=== PATIENT | female | born 1960 | race Caucasian/White ===

== ENCOUNTER → 2016-08-03 | Day surgery (SDC) | payer BC ==
[2016-07-31 10:41] VITALS: BMI 28.0
[~2016-08-03] VITALS: Ht 170.2 cm; Wt 81.8 kg
[~2016-08-03] MED LIST: ASCO10003 PO; CALC500C70 PO; IRON PO; LIDOCAINE HCL 2% 2 ML VIAL (20MG/ML) ONE; MIDAZOLAM HCL 1 MG/ML 2ML VIAL ONE; OMEG10007 PO; PANT40TA PO; PROPOFOL IV EMULSION 10 MG/ML 20 ML VIAL IV ONE; SODIUM CHLORIDE 0.9% 500ML 500 ML IV ONE; TAMO20TA9 PO; VITAMIN B12 PO
[2016-08-03 09:30] VITALS: Ht 170.2 cm; Wt 81.8 kg
--- NOTE | 2016-08-03 10:03 | Endo History and Physical ---
History & Physical Date of Service: Aug 03, 2016. Chief Complaint: DYSPHAGIA ABNORMAL BARIUM SWALLOW Referring Physician: DR PREEZ History of Present Illness 56 yo CF who presents for EGD secondary to dysphagia. Past Medical History Cancer Past Surgical History Hx Cardiac Surgery: No Hx Internal Defibrillator: No Hx Pacemaker: No Hx Abdominal Surgery: Yes (, DESMOID TUMOR REMOVAL FROM ABDOMINAL WALL ) Hx of Implantable Prosthesis: No Hx Post-Op Nausea and Vomiting: No Hx Cancer Surgery: Yes (LEFT BREAST LUMPECTOMY (2 PROCEDURES)) Hx Thoracic Surgery: No Hx Orthopedic: No Hx Urinary Tract Surgery: No Family History None Social History Smoking Status: Never Smoker Hx Substance Use: No Hx Alcohol Use: Yes (OCCASSIONALLY) Allergies Coded Allergies: Nickel (Unverified Allergy, Intermediate, RASH, 08/03/16) SKIN IRRATATION AND BLEEDING WITH MAGALI NO KNOWN DRUG ALLERGIES (Verified Allergy, Unknown, ., 08/03/16) Cyclamate (Unverified Adverse Reaction, Unknown, STOMACH ACHES, 08/03/16) 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 Current Medications Reported Home Medications Medications Dose Route/Sig Max Daily Dose Days Date Category Os-Wilber 500 Plus D (Calcium/Vitamin D) Tab 1 Tab PO DAILY 08/03/16 Reported [place]-3 (Fish Oil) 1 Ea Cap 1 Cap PO 08/03/16 Reported [Vitamin B12] 1 Tab PO HS 07/31/16 Reported [Iron] 1 Tab PO HS 07/31/16 Reported Vitamin C (Ascorbic Acid) 1,000 Mg Tab 1 Tab PO HS 07/31/16 Reported Vital Signs Weight (Kilograms): 81.82 Height (Feet): 5 Height (Inches): 7 Date Time Temp Pulse Resp B/P Pulse Ox O2 Delivery O2 Flow Rate FiO2 08/03/16 09:35 36.5 81 18 154/74 98 Room Air Physical Exam General Appearance: WD/WN, no apparent distress Respiratory/Chest: Auscultation: breath sounds normal Cardiovascular: Heart Auscultation: RRR Abdomen: Bowel Sounds: normal Inspection & Palpation: soft, non-distended, no tenderness, guarding & rebound Assessment and Plan Assessment: 56 yo CF who presents for EGD secondary to dysphagia. Plan: Proceed with EGD.
--- NOTE | 2016-08-03 10:17 | Discharge Instructions ---
Endoscopy Patient Instructions Date / Procedure(s) Performed Aug 03, 2016. 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 Esophageal stricture s/p dilation and mid-esophageal biopsies Medication Instructions Reported Home Medications Medications Dose Route/Sig Max Daily Dose Days Date Category Os-Wilber 500 Plus D (Calcium/Vitamin D) Tab 1 Tab PO DAILY 08/03/16 Reported [place]-3 (Fish Oil) 1 Ea Cap 1 Cap PO 08/03/16 Reported [Vitamin B12] 1 Tab PO HS 07/31/16 Reported [Iron] 1 Tab PO HS 07/31/16 Reported Vitamin C (Ascorbic Acid) 1,000 Mg Tab 1 Tab PO HS 07/31/16 Reported Provider Instructions Activity Restrictions - No exercising or heavy lifting for 24 hours. - Do not drink alcohol the day of the procedure. - Do not drive a car or operate machinery until the day after the procedure. - Do not make any important decisions or sign important papers in 24 hours after the procedure. Following Day: - Return to full activity which may include returning to work/school. Diet Start your diet with liquids and light foods (jello, soup, juice, toast). Then eat your usual diet if not nauseated. Treatment For Common After Affects For mild abdominal pain, bloating, or excessive gas: - Rest - Eat lightly - Lie on right side Follow-Up Information Follow-up with DR PEREZ as scheduled Anesthesia Information What You Should Know You have had a procedure that required some medicine to reduce anxiety and discomfort. This treatment is called moderate sedation. After receiving the treatment, you may be sleepy, but you will be able to breathe on your own. The effects of the treatment may last for several hours. Follow these instructions along with Activity/Diet recommendations noted above: * Do NOT do anything where dizziness or clumsiness would be dangerous. * Rest quietly at home today, then you can be up and about tomorrow. * Have a responsible person stay with you the rest of today. * You may have had an I.V. today. If so, you may take the dressing off later today. Recommendations Call your doctor if: * Trouble breathing * Continuous vomiting for more than 24 hours * Temperature above 101 degrees * Severe abdominal pain or bloating * Pain not relieved by pain medicine ordered * There is increased drainage or redness from any incision * A large amount of rectal bleeding greater than 2-3 tablespoons. (If you had a polyp/s removed or have hemorrhoids, a small amount of blood - from the rectum is to be expected.) * You have any unanswered questions or concerns. IN THE EVENT OF A SERIOUS EMERGENCY, GO TO THE NEAREST EMERGENCY ROOM Your discharge instructions were prepared by provider Shun Ozuna. Patient Instructions Signature Page Kadi Lehman Patient (or Guardian) Signature/Date: I have read and understand the instructions given to me by my caregivers. Caregiver/RN/Doctor Signature/Date: The above-named patient and/or guardian has received patient instructions on this date. + Original Patient Signature Page (only) stays with chart. Please make copy for patient.
--- NOTE | 2016-08-03 10:34 | GI REPORT ---
Procedure Date: 08/03/2016 9:59 AM Procedure: Upper GI endoscopy Indications: Dysphagia Medicines: Monitored Anesthesia Care Complications: No immediate complications. Estimated Blood Loss: Estimated blood loss: none. Procedure: Pre-Anesthesia Assessment: - Prior to the procedure, a History and Physical was performed, and patient medications and allergies were reviewed. The patient's tolerance of previous anesthesia was also reviewed. The risks and benefits of the procedure and the sedation options and risks were discussed with the patient. All questions were answered, and informed consent was obtained. Prior Anticoagulants: The patient has taken no previous anticoagulant or antiplatelet agents. ASA Grade Assessment: I - A normal, healthy patient. After reviewing the risks and benefits, the patient was deemed in satisfactory condition to undergo the procedure. After obtaining informed consent, the endoscope was passed under direct vision. Throughout the procedure, the patient's blood pressure, pulse, and oxygen saturations were monitored continuously. The Scope was introduced through the mouth, and advanced to the second part of duodenum. The upper GI endoscopy was accomplished without difficulty. The patient tolerated the procedure well. Findings: One moderate benign-appearing, intrinsic stenosis was found. This measured 1.1 cm (inner diameter) x less than one cm (in length) and was traversed. A TTS dilator was passed through the scope. Dilation with a 12-13.5-15 mm balloon (to a maximum balloon size of 15 mm) dilator was performed. The dilation site was examined and showed moderate improvement in luminal narrowing. Four biopsies were obtained with cold forceps for histology in a targeted manner in the middle third of the esophagus. The stomach was normal. The examined duodenum was normal. Impression: - Benign-appearing esophageal stenosis. Dilated. - Normal stomach. - Normal examined duodenum. - Four biopsies were obtained in the middle third of the esophagus. Recommendation: - Resume previous diet. - Use Protonix (pantoprazole) 40 mg PO daily indefinitely. - Await pathology results. - Return to GI office at appointment to be scheduled. Shun Ozuna DO 08/03/2016 10:23:38 AM This report has been signed electronically. Note Initiated On: 08/03/2016 9:59 AM
[2016-08-03 10:52] VITALS: BP 119/82; PULSE 60; O2SAT 100
--- NOTE | 2016-08-03 11:29 | Anesthesiology Progress Note ---
Anesthesia Post Op Note Date & Time Aug 03, 2016 at 11:28 Vital Signs Pain Intensity: 0 Vital Signs Past 12 Hours Date Time Temp Pulse Resp B/P Pulse Ox O2 Delivery O2 Flow Rate FiO2 08/03/16 10:52 60 20 119/82 100 Room Air 08/03/16 10:37 74 20 114/72 96 Room Air 08/03/16 10:22 71 20 112/65 95 Room Air 08/03/16 09:35 36.5 81 18 154/74 98 Room Air Notes Mental Status: alert / awake / arousable Nausea / Vomiting: adequately controlled Pain: adequately controlled Airway Patency, RR, SpO2: stable & adequate BP & HR: stable & adequate Hydration State: stable & adequate Anesthetic Complications: no major complications apparent
== END | disposition home or self-care (01) ==
LOC: C.GI 09:16
PROVIDERS: ATTEND Internal Medicine
DX: R13.10 Dysphagia, unspecified (principal); K20.9 Esophagitis, unspecified; K22.2 Esophageal obstruction; Z85.9 Personal history of malignant neoplasm, unspecified; Z98.890 Other specified postprocedural states

== ENCOUNTER → 2016-08-26 | Outpatient (CLI) | payer BC ==
[~2016-08-26] MED LIST changes: -LIDOCAINE HCL 2% 2 ML VIAL (20MG/ML) ONE; -MIDAZOLAM HCL 1 MG/ML 2ML VIAL ONE; -PROPOFOL IV EMULSION 10 MG/ML 20 ML VIAL IV ONE; -SODIUM CHLORIDE 0.9% 500ML 500 ML IV ONE; +TAMO20TA47 PO; -TAMO20TA9 PO
[2016-08-26 14:49] VITALS: BP 130/75; PULSE 76; TEMP 36.6; O2SAT 99
--- NOTE | 2016-08-26 16:56 | Radiation Oncology Follow-Up ---
Radiation Oncology Follow-Up Date of Visit Aug 26, 2016. (Judith Hamlin PA-C) Reason For Visit One-month follow-up and cancer survivorship care plan (Judith Hamlin PA-C) Radiation Completion Date Hypofractionation 07/24/16 (Judith Hamlin PA-C) Diagnosis (1) Breast cancer Onset Date: 03/17/2016 Histology Subtype: lobular Stage: l (A) Permanent Comment: STAGING: Left breast, cancer, invasive lobular carcinoma, grade 1, ER/DE positive, Her2 negative, [id number], stage IA -Oncotype DX Score 10 -BRCA 1/2 mutation negative TREATMENT: 1. Lumpectomy/SLN - 04/08/2016 (Dr. Kaba) 2. Re-excision for negative margins - 05/06/2016 (Dr. Kaba) 3. Wound healing issues requiring a wound vac 4. Status post completion of radiation therapy 07/24/2016 received 5130 cGy utilizing hypo-fractionation. Last Edited By: Judith Hamlin on Aug 04, 2016 15:09 (Judith Hamlin PA-C) History of Present Illness Ms. Lehman is a 56-year-old female with a family history of breast cancer who' s been followed with alternating MRI and mammogram/ultrasound imaging for her breast cancer screening. In August 2015, she did have bilateral ultrasounds which did reveal a 4 mm enhancing focus in the left breast at the 11 o'clock position. Additionally, there was a benign finding in the right breast that was also being followed. She did have a bilateral MRI of the breast on 2015 which revealed a 4 mm focus of enhancement in the left breast in the 11 o' clock position which has changed in kinetics making it more concerning for malignancy. Recommendation was for a diagnostic bilateral mammogram with targeted ultrasound which was completed on 03/05/2016 which showed no evidence of malignancy in either breast. Subsequently, she underwent an MRI guided biopsy on 03/17/2016 of the left breast mass in the biopsy confirmed invasive lobular carcinoma that was grade 1, estrogen receptor positive, progesterone receptor positive and HER-2 negative. There is no perineural invasion or evidence of ductal carcinoma in situ. The patient subsequently saw Dr. Darryl Kaba from surgery to discuss treatment options. The patient ultimately decided for breast conserving therapy which include a lumpectomy and sentinel lymph node biopsy. She subsequently underwent lumpectomy and sentinel lymph node biopsy on 04/08/2016 which revealed invasive lobular carcinoma that was grade 1. There was a residual amount of tumor that measured 1 mm, but the biopsy measured 10 mm so the pathologist staged the patient as pT1c. There is no evidence of ductal carcinoma in situ, lymphovascular space invasion as well. The margin was positive at the lateral edge of the resection for invasive lobular carcinoma. The sentinel lymph node was negative for metastatic carcinoma. The patient subsequently underwent re-resection on 05/06/2016 and was able to obtain negative margins. At the time of the surgery, the patient was already having an enlarged seroma and there was concern for potential wound healing issues so the patient did have a wound VAC placed in the operating room. Since then, she is been followed by the wound clinic and currently has the wound VAC in place. She did have a Oncotype DX study completed on her pathologic specimen which revealed a score of 10. The patient was seen in consultation by Dr. Sergio Reese for medical oncology who discussed systemic therapy. He advised against chemotherapy based on her Oncotype DX study but recommended anti- hormonal therapy based on her estrogen receptor positive status. The patient agreed with this treatment course. We are now seeing the patient in consultation discussed role of adjuvant radiation therapy. Overall, the patient is doing relatively well. She does continue to have a wound VAC in place and she is tolerating it well. She will be seeing the wound clinic next week for potential removal of the wound VAC. Otherwise she has no other complaints. After clearance from the wound clinic she return to our office and underwent radiation therapy. Radiation was completed 07/24/2016 she received 5130 cGy utilizing hypo-fractionation. (Judith Hamlin PA-C) Interim History She's been doing well over the past month. The irritation of the skin has steadily improved. She does continue to have tanning. There is continued to be some mild peeling. The area under the arm had previously been very tender. This is steadily improved. She has noted no masses or tenderness and no change of the axilla she's had no swelling of her arm. She is currently not scheduled for mammography. She saw Dr. Reese and she is now on tamoxifen. She denies side effects. 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 in areas; Breast: Right Upper Arm Measurement: 29.5 Right Mid Arm Measurement: 25.5 Right Wrist Measurement: 16.0 Left Upper Arm Measurement: 29.0 Left Mid Arm Measurement: 24.8 Left Wrist Measurement: 16.0 Arm Dominence: Right Additional Notes: She completed a distress management report and answered "no" to all questions. (Judith Hamlin PA-C) Physical Exam Vital Signs Date Time Temp Pulse Resp B/P Pulse Ox O2 Delivery O2 Flow Rate FiO2 08/26/16 14:49 36.6 76 12 130/75 99 Fatigue: None General Appearance: no apparent distress Eyes: normal inspection, EOMI ENT: normal ENT inspection, hearing grossly normal Respiratory/Chest: lungs clear, no respiratory distress, no accessory muscle use Breast: Breast examination reveals hyperpigmentation of the left breast. There is mild dryness of the skin with peeling. There is hypopigmentation of the nipple with mild swelling. There is mild edema in the lower quadrants. There are no masses or tenderness. She has no skin retractions. Using the [place] score cosmesis she currently has a poor outcome due to the skin changes. This is steadily improve over time. The right breast showed no masses or tenderness and no axillary adenopathy. Cardiovascular: regular rate, rhythm, no gallop, no murmur Abdomen: non tender, soft Extremities: no pedal edema Neurologic/Psychiatric: no motor/sensory deficits, alert, normal mood/affect Skin: warm/dry Lymphatic: no adenopathy (Judith Hamlin PA-C) Laboratory Studies Test 07/20/16 09:07 07/28/16 15:21 08/06/16 12:39 Triglycerides Level 61 mg/dl (0-150) Cholesterol Level 149 mg/dl (0-200) HDL Cholesterol 63 mg/dl LDL Cholesterol, Calculated 74 mg/dl VLDL Cholesterol, Calculated 12 mg/dl Cholesterol/HDL Ratio 2.4 Thyroid Stimulating Hormone (TSH) 2.930 uIu/ml (0.300-4.500) Hepatitis C Antibody NEG (NEG) Sodium Level 141 mmol/L (136-145) 141 mmol/L (136-145) Potassium Level 3.9 mmol/L (3.5-5.1) 3.7 mmol/L (3.5-5.1) Chloride Level 106 mmol/L (98-107) 105 mmol/L (98-107) Carbon Dioxide Level 29 mmol/L (21-32) 28 mmol/L (21-32) Anion Gap 6.0 mmol/L (3-11) 8.0 mmol/L (3-11) Blood Urea Nitrogen 15 mg/dl (7-18) 8 mg/dl (7-18) Creatinine 0.69 mg/dl (0.60-1.20) 0.73 mg/dl (0.60-1.20) Estimated GFR () 114.4 108.2 Estimated GFR (Non- 98.7 93.4 BUN/Creatinine Ratio 21.4 (10-20) 11.0 (10-20) Random Glucose 92 mg/dl (70-99) 85 mg/dl (70-99) Calcium Level 8.5 mg/dl (8.5-10.1) 8.8 mg/dl (8.5-10.1) Magnesium Level 2.4 mg/dl (1.8-2.4) White Blood Count 5.60 K/uL (4.8-10.8) Red Blood Count 4.32 M/uL (4.2-5.4) Hemoglobin 12.6 g/dL (12.0-16.0) Hematocrit 37.4 % (37-47) Mean Corpuscular Volume 86.6 fL (80-100) Mean Corpuscular Hemoglobin 29.2 pg (25-34) Mean Corpuscular Hemoglobin Concent 33.7 g/dl (32-36) Platelet Count 221 K/uL (130-400) Mean Platelet Volume 11.2 fL (7.4-10.4) Neutrophils (%) (Auto) 71.2 % Lymphocytes (%) (Auto) 17.9 % Monocytes (%) (Auto) 6.1 % Eosinophils (%) (Auto) 3.9 % Basophils (%) (Auto) 0.5 % Neutrophils # (Auto) 3.99 K/uL (1.4-6.5) Lymphocytes # (Auto) 1.00 K/uL (1.2-3.4) Monocytes # (Auto) 0.34 K/uL (0.11-0.59) Eosinophils # (Auto) 0.22 K/uL (0-0.5) Basophils # (Auto) 0.03 K/uL (0-0.2) RDW Standard Deviation 41.7 fL (36.4-46.3) RDW Coefficient of Variation 13.0 % (11.5-14.5) Immature Granulocyte % (Auto) 0.4 % Immature Granulocyte # (Auto) 0.02 K/uL (0.00-0.02) Total Bilirubin 0.4 mg/dl (0.2-1) Aspartate Amino Transferase (AST) 14 U/L (15-37) Alanine Aminotransferase (ALT) 26 U/L (12-78) Alkaline Phosphatase 55 U/L (45-117) Lactate Dehydrogenase 164 U/L (84-246) Total Protein 7.1 gm/dl (6.4-8.2) Albumin 3.9 gm/dl (3.4-5.0) Globulin 3.2 gm/dl (2.5-4.0) Albumin/Globulin Ratio 1.2 (0.9-2) (Judith Hamlin PA-C) Assessment & Plan Plan: Patient was also seen and examined by Dr. Moore. She'll continue regular follow-up with Dr. Reese and her primary care physician. She continues on the tamoxifen. Digital diagnostic mammography was scheduled for the left breast in 2 months. Because of her dense breasts MRIs were also is scheduled for 2 months. She'll then require bilateral mammography in 8 months. We'll continue to follow the recommendation of the radiologist regards to timing of imaging. Today we completed a cancer survivorship care plan. A copy of the document was given to the patient. She was also given a survivorship booklet. We asked her to return to our office in 6 months. She may call if she has any questions or concerns in the interim. (Judith Hamlin PA-C) I agree with note created by Judith Hamlin PA-C. I reviewed the patient's chart and information with her. I have examined and evaluated the patient. I reviewed relevant clinical information and answered the patient's and/or family' s questions. (Veeral. Moore MD) Total Time In Follow-Up I spent 30 minutes speaking to the patient and performing examination. I spent 20 minutes reviewing information, preparing the survivorship document, and completing this note. (Judith Hamlin PA-C) I spent 20 minutes examining and counseling the patient. (Veeral. Moore MD) Copy To Sergio Reese D.O.; Darryl Kaba M.D.; Hanna Stover, DO Problem Qualifiers (1) Breast cancer: Breast location: upper outer quadrant of breast Patient sex: female Laterality: left Qualified Codes: C50.412 - Malignant neoplasm of upper- outer quadrant of left female breast
== END | disposition home or self-care (01) ==
LOC: C.ONC 14:42
PROVIDERS: ATTEND Radiology Radiation Oncology
DX: Z08 Encounter for follow-up examination after completed treatment for malignant neoplasm (principal); Z92.3 Personal history of irradiation; Z85.3 Personal history of malignant neoplasm of breast

== ENCOUNTER → 2016-10-28 | Outpatient (CLI) | payer BC ==
[~2016-10-28] MED LIST changes: +GADAVIST IV PRN; -TAMO20TA47 PO; +TAMO20TA9 PO
--- NOTE | 2016-10-29 16:46 | MAMMOGRAPHY REPORT ---
BREAST MRI OF BOTH BREASTS : 10/28/2016 CLINICAL HISTORY: History of left breast cancer status post lumpectomy. COMPARISON: Comparison is made to exams dated: 04/08/2016 specimen, 03/05/2016 mammogram, 01/28/2016 jose ast MRI, and 07/05/2015 breast MRI - [facility]. Technique: The patient was placed prone in a dedicated breast imaging coil. Precontrast axial T1-we ighted, axial T2-weighted fat saturation, and axial T1-weighted fat saturation images were obtained. After the administration of 8.5 mL of Gadavist IV contrast, sequential T1-weighted fat saturation images were obtained. Subtraction images were obtained of the dynamic contrast enhanced sequences, and 3-D reformations were performed. The [employer] software was used for kinetic analysis. Findings: There is mild background parenchymal enhancement bilaterally. There are new post surgical changes i n the left upper outer quadrant at approximately 1:00 posteriorly from prior lumpectomy. There is a lso diffuse left breast skin thickening and T2 hyperintensity as well as diffuse left breast trabecu lar T2 hyperintensity, likely a sequela of radiation therapy. Again noted are circumscribed T2 hype rintense, nonenhancing masses seen within both breasts, consistent with cysts. Again noted are scattered foci of enhancement within the right breast. There are 2 adjacent foci of enhancement in the right lower outer quadrant middle depth at approximately 7:00, the largest measu ring 5 mm, which demonstrate predominantly persistent kinetics (series [id number] image 85). Additionall y, there is a 4 mm focus of enhancement in the right breast at approximately 8:00 middle depth, whic h demonstrates a mixed kinetic pattern including washout kinetics (series [id number] image 76). These fo ci are stable dating back to the 07/05/2015 MRI exam although are more conspicuous on the current exa m due to differences in background parenchymal enhancement (currently mild, previously moderate). T he foci are probably benign given the stability, however, given the subtle appearance of the biopsy- proven malignancy in the left breast, continued follow-up is recommended of these foci. There is a 2 mm enhancing focus in the right lower inner quadrant which demonstrates corresponding T2 hyperinte nsity and a central fat-intensity hilum, and likely represents an intramammary lymph node, stable da ting back to the July 2015 exam (series [id number] image 95). There are no suspicious enhancing mass es or areas of abnormal non-mass enhancement in the left breast. There is no evidence of axillary adenopathy. The chest wall structures are negative. Extramammary soft tissues are unremarkable. IMPRESSION: ACR-BI-RADS CATEGORY 3: PROBABLY BENIGN 1. Three enhancing foci in the right breast are stable dating back to the 07/05/2015 MRI, although ar e more conspicuous on the current exam due to differences in background parenchymal enhancement betw een the current and prior exams. The foci are probably benign and short interval follow-up bilatera l breast MRI is recommended in 6 months to confirm longer stability. 2. Expected posttreatment changes in the left breast, without suspicious finding seen within the le ft breast. Sunshine Oshea M.D. ah/:10/29/2016 16:00:07 [employer]: experimental [employer], [facility] letter sent: Follow Up Recommended 3 BI-RADS Code: ACR-BI-RADS Category 3: Probably Benign
== END | disposition home or self-care (01) ==
LOC: C.MRI 08:08
PROVIDERS: ATTEND Physician Assistant Medical
DX: C50.412 Malignant neoplasm of upper-outer quadrant of left female breast (principal)

== ENCOUNTER → 2017-03-16 | Outpatient (CLI) | payer BC ==
[~2017-03-16] MED LIST changes: -GADAVIST IV PRN; +TAMO20TA47 PO; -TAMO20TA9 PO
[2017-03-16 14:57] VITALS: BP 143/83; PULSE 71; TEMP 37; O2SAT 97
--- NOTE | 2017-03-16 18:29 | Radiation Oncology Follow-Up ---
Radiation Oncology Follow-Up Date of Visit Mar 16, 2017. Reason For Visit 6 month follow-up Radiation Completion Date finished using hypofractionated radiation therapy Diagnosis (1) Breast cancer Status: Resolved Onset Date: 03/17/2016 Histology Subtype: lobular Stage: l (A) Permanent Comment: STAGING: Left breast, cancer, invasive lobular carcinoma, grade 1, ER/VT positive, Her2 negative, [id number], stage IA -Oncotype DX Score 10 -BRCA 1/2 mutation negative TREATMENT: 1. Lumpectomy/SLN - 04/08/2016 (Dr. Kaba) 2. Re-excision for negative margins - 05/06/2016 (Dr. Kaba) 3. Wound healing issues requiring a wound vac 4. Status post completion of radiation therapy 07/24/2016 received 5130 cGy utilizing hypo-fractionation. Last Edited By: Judith Hamlin on Aug 04, 2016 15:09 History of Present Illness Ms. Lehman is a 56-year-old female with a family history of breast cancer who' s been followed with alternating MRI and mammogram/ultrasound imaging for her breast cancer screening. In August 2015, she did have bilateral ultrasounds which did reveal a 4 mm enhancing focus in the left breast at the 11 o'clock position. Additionally, there was a benign finding in the right breast that was also being followed. She did have a bilateral MRI of the breast on 2015 which revealed a 4 mm focus of enhancement in the left breast in the 11 o' clock position which has changed in kinetics making it more concerning for malignancy. Recommendation was for a diagnostic bilateral mammogram with targeted ultrasound which was completed on 03/05/2016 which showed no evidence of malignancy in either breast. Subsequently, she underwent an MRI guided biopsy on 03/17/2016 of the left breast mass in the biopsy confirmed invasive lobular carcinoma that was grade 1, estrogen receptor positive, progesterone receptor positive and HER-2 negative. There is no perineural invasion or evidence of ductal carcinoma in situ. The patient subsequently saw Dr. Darryl Kaba from surgery to discuss treatment options. The patient ultimately decided for breast conserving therapy which include a lumpectomy and sentinel lymph node biopsy. She subsequently underwent lumpectomy and sentinel lymph node biopsy on 04/08/2016 which revealed invasive lobular carcinoma that was grade 1. There was a residual amount of tumor that measured 1 mm, but the biopsy measured 10 mm so the pathologist staged the patient as pT1c. There is no evidence of ductal carcinoma in situ, lymphovascular space invasion as well. The margin was positive at the lateral edge of the resection for invasive lobular carcinoma. The sentinel lymph node was negative for metastatic carcinoma. The patient subsequently underwent re-resection on 05/06/2016 and was able to obtain negative margins. At the time of the surgery, the patient was already having an enlarged seroma and there was concern for potential wound healing issues so the patient did have a wound VAC placed in the operating room. Since then, she is been followed by the wound clinic and currently has the wound VAC in place. She did have a Oncotype DX study completed on her pathologic specimen which revealed a score of 10. The patient was seen in consultation by Dr. Sergio Reese for medical oncology who discussed systemic therapy. He advised against chemotherapy based on her Oncotype DX study but recommended anti- hormonal therapy based on her estrogen receptor positive status. The patient agreed with this treatment course. We are now seeing the patient in consultation discussed role of adjuvant radiation therapy. Overall, the patient is doing relatively well. She does continue to have a wound VAC in place and she is tolerating it well. She will be seeing the wound clinic next week for potential removal of the wound VAC. Otherwise she has no other complaints. After clearance from the wound clinic she return to our office and underwent radiation therapy. Radiation was completed 07/24/2016 she received 5130 cGy utilizing hypo-fractionation. Interim History She's been doing well over the past 6 months. She denies any changes to her breast. She's noticed no masses or tenderness no change of axilla. She's had no swelling of her arm. At her one-month visit mammography was scheduled for the left breast in 2 months. In reviewing our records this was not performed. She did follow through with MRIs of the breasts performed 10/28/2016. This revealed stable enhancing changes but there was recommendation for recheck MRI in 6 months to confirm stability. She is on tamoxifen and did not complain of side effects. She has had difficulty with dysphagia for a number of years. This became especially bothersome in August she underwent an EGD with dilatation on 08/03/2016. This felt that she has reflux. She is on medication and doing well. 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 Home Medications Scheduled Ascorbic Acid (Vitamin C), 1 TAB PO HS Calcium/Vitamin D (Os-Wilber 500 Plus D), 1 TAB PO DAILY Fish Oil ([place]-3), 1 CAP PO DAILY Pantoprazole (Protonix), 40 MG PO DAILY Tamoxifen (Nolvadex), 20 MG PO DAILY [Vitamin B12], 1 TAB PO HS Review of Systems Gastrointestinal: Symptoms: WNL Oral: Symptoms: No Problems Other Oral Symptoms: had difficulty swallowing in , ok now after dilitation " Respiratory: Symptoms: WNL Urinary: Symptoms: WNL Skin: Symptoms: No Problems Breast: Right Upper Arm Measurement: 29.0 Right Mid Arm Measurement: 25.0 Right Wrist Measurement: 16.0 Left Upper Arm Measurement: 28.8 Left Mid Arm Measurement: 23.5 Left Wrist Measurement: 15.7 Arm Dominence: Right Patient Cosmetic Evaluation: Good Staff Cosmetic Evalaluation: Good Physical Exam Vital Signs Date Time Temp Pulse Resp B/P (MAP) Pulse Ox O2 Delivery O2 Flow Rate FiO2 03/16/17 14:57 37.0 71 16 143/83 97 Pain: Side: Bilateral Patient Pain Scale: 0 - 10 Initial Pain Intensity: 0.0 Fatigue: None General Appearance: no apparent distress Eyes: normal inspection, EOMI ENT: normal ENT inspection, hearing grossly normal Neck: no adenopathy, thyroid normal Respiratory/Chest: lungs clear, no respiratory distress, no accessory muscle use Breast: Left breast examination reveals well-healed incision. There are mild fibrous changes in the area of the incision. There are no masses or tenderness and no axillary adenopathy. She has resolving hyperpigmentation. There are no skin retractions or nipple changes. Using the [place] score cosmesis she has a good outcome. Right breast reveals no masses or tenderness no axillary adenopathy. Cardiovascular: regular rate, rhythm, no gallop, no murmur Neurologic/Psychiatric: no motor/sensory deficits, alert, normal mood/affect Skin: warm/dry Laboratory Studies Test 02/10/17 11:20 White Blood Count 4.88 K/uL (4.8-10.8) Red Blood Count 4.61 M/uL (4.2-5.4) Hemoglobin 13.1 g/dL (12.0-16.0) Hematocrit 40.5 % (37-47) Mean Corpuscular Volume 87.9 fL (80-100) Mean Corpuscular Hemoglobin 28.4 pg (25-34) Mean Corpuscular Hemoglobin Concent 32.3 g/dl (32-36) Platelet Count 226 K/uL (130-400) Mean Platelet Volume 11.4 fL (7.4-10.4) Neutrophils (%) (Auto) 63.1 % Lymphocytes (%) (Auto) 26.0 % Monocytes (%) (Auto) 7.6 % Eosinophils (%) (Auto) 2.5 % Basophils (%) (Auto) 0.6 % Neutrophils # (Auto) 3.08 K/uL (1.4-6.5) Lymphocytes # (Auto) 1.27 K/uL (1.2-3.4) Monocytes # (Auto) 0.37 K/uL (0.11-0.59) Eosinophils # (Auto) 0.12 K/uL (0-0.5) Basophils # (Auto) 0.03 K/uL (0-0.2) RDW Standard Deviation 41.6 fL (36.4-46.3) RDW Coefficient of Variation 13.0 % (11.5-14.5) Immature Granulocyte % (Auto) 0.2 % Immature Granulocyte # (Auto) 0.01 K/uL (0.00-0.02) Sodium Level 140 mmol/L (136-145) Potassium Level 3.6 mmol/L (3.5-5.1) Chloride Level 104 mmol/L (98-107) Carbon Dioxide Level 30 mmol/L (21-32) Anion Gap 6.0 mmol/L (3-11) Blood Urea Nitrogen 9 mg/dl (7-18) Creatinine 0.88 mg/dl (0.60-1.20) Estimated GFR () 85.7 Estimated GFR (Non- 74.0 BUN/Creatinine Ratio 10.3 (10-20) Random Glucose 82 mg/dl (70-99) Calcium Level 9.2 mg/dl (8.5-10.1) Iron Level 99 mcg/dl (35-150) Total Iron Binding Capacity 289 mcg/dl (250-450) Ferritin 121.4 ng/ml (8.0-388.0) Total Bilirubin 0.5 mg/dl (0.2-1) Aspartate Amino Transferase (AST) 15 U/L (15-37) Alanine Aminotransferase (ALT) 26 U/L (12-78) Alkaline Phosphatase 44 U/L (45-117) Lactate Dehydrogenase 188 U/L (84-246) Total Protein 7.6 gm/dl (6.4-8.2) Albumin 4.2 gm/dl (3.4-5.0) Globulin 3.4 gm/dl (2.5-4.0) Albumin/Globulin Ratio 1.2 (0.9-2) Additional Studies Patient: RANDY LEHMAN [facility] Rec: [id number] Address1: [address] [place] [address] Address2: Acct ID: [id number] Date: 1960 Sex: F Ref Phy: Judith Hamlin PA-C Att Phy: Judith Hamlin PA-C Jeanine Phy: Hanna Stover DO Inter Phy: Sunshine Oshea MD [facility] Zip: [place] [address] SC: CTomyMRI Report #: [id number] Manager Security: ANNABEL Diagnosis: LT BREAST CA Service Date: 10/28/16 MNE: [id number] Ordering Dr: Judith Hamlin PA-C CC: Judith Hamlin PA-C CONF: DICTATED BY: Sunshine Oshea MD MAMMOGRAPHY REPORT BREAST MRI OF BOTH BREASTS : 10/28/2016 CLINICAL HISTORY: History of left breast cancer status post lumpectomy. COMPARISON: Comparison is made to exams dated: 04/08/2016 specimen, 03/05/2016 mammogram, 01/28/2016 breast MRI, and 07/05/2015 breast MRI - [facility]. Technique: The patient was placed prone in a dedicated breast imaging coil. Precontrast axial T1-weighted, axial T2-weighted fat saturation, and axial T1- weighted fat saturation images were obtained. After the administration of 8.5 mL of Gadavist IV contrast, sequential T1-weighted fat saturation images were obtained. Subtraction images were obtained of the dynamic contrast enhanced sequences, and 3-D reformations were performed. The [employer] software was used for kinetic analysis. Findings: There is mild background parenchymal enhancement bilaterally. There are new post surgical changes in the left upper outer quadrant at approximately 1:00 posteriorly from prior lumpectomy. There is also diffuse left breast skin thickening and T2 hyperintensity as well as diffuse left breast trabecular T2 hyperintensity, likely a sequela of radiation therapy. Again noted are circumscribed T2 hyperintense, nonenhancing masses seen within both breasts, consistent with cysts. Again noted are scattered foci of enhancement within the right breast. There are 2 adjacent foci of enhancement in the right lower outer quadrant middle depth at approximately 7:00, the largest measuring 5 mm, which demonstrate predominantly persistent kinetics (series [id number] image 85). Additionally, there is a 4 mm focus of enhancement in the right breast at approximately 8:00 middle depth, which demonstrates a mixed kinetic pattern including washout kinetics ( series [id number] image 76). These foci are stable dating back to the 07/05/2015 MRI exam although are more conspicuous on the current exam due to differences in background parenchymal enhancement (currently mild, previously moderate). The foci are probably benign given the stability, however, given the subtle appearance of the biopsy-proven malignancy in the left breast, continued follow- up is recommended of these foci. There is a 2 mm enhancing focus in the right lower inner quadrant which demonstrates corresponding T2 hyperintensity and a central fat-intensity hilum, and likely represents an intramammary lymph node, stable dating back to the July 2015 exam (series 04406 image 95). There are no suspicious enhancing masses or areas of abnormal non-mass enhancement in the left breast. There is no evidence of axillary adenopathy. The chest wall structures are negative. Extramammary soft tissues are unremarkable. IMPRESSION: ACR-BI-RADS CATEGORY 3: PROBABLY BENIGN 1. Three enhancing foci in the right breast are stable dating back to the 2014 MRI, although are more conspicuous on the current exam due to differences in background parenchymal enhancement between the current and prior exams. The foci are probably benign and short interval follow-up bilateral breast MRI is recommended in 6 months to confirm longer stability. 2. Expected posttreatment changes in the left breast, without suspicious finding seen within the left breast. Sunshine Oshea M.D. 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 Moore. She is scheduled for mammography in April. She is due for MRIs of the breast after April 30. She was given a reminder card about her mammograms. The MRI will be scheduled. She continues on tamoxifen. Continue follow-up with Dr. Reese, Dr. Kaba and Dr. stover. We asked her to return to our office in 1 year. She may call if she has any questions or concerns in the interim. ADDENDUM: I agree with note created by Judith Hamlin PA-C. I reviewed the patient's chart and information with her. I have examined and evaluated the patient. I reviewed relevant clinical information and answered the patient's and /or family's questions. Total Time In Follow-Up I spent 20 minutes speaking to the patient forming examination. As 15 minutes reviewing information and completeness note. AK I spent 15 minutes examining and counseling the patient. 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
== END | disposition home or self-care (01) ==
LOC: C.ONC 14:51
PROVIDERS: ATTEND Physician Assistant Medical
DX: Z08 Encounter for follow-up examination after completed treatment for malignant neoplasm (principal); Z92.3 Personal history of irradiation; Z85.3 Personal history of malignant neoplasm of breast

== ENCOUNTER → 2017-04-07 | Outpatient (CLI) | payer BC ==
[~2017-04-07] MED LIST changes: -IRON PO
== END | disposition home or self-care (01) ==
LOC: C.PAPS 14:18
PROVIDERS: ATTEND Obstetrics & Gynecology
DX: Z01.419 Encounter for gynecological examination (general) (routine) without abnormal findings (principal)

== ENCOUNTER → 2017-04-07 | Outpatient (CLI) | payer BC | END | disposition home or self-care (01) | LOC: C.LABSPEC 14:28 | PROVIDERS: ATTEND Obstetrics & Gynecology | DX: N89.8 Other specified noninflammatory disorders of vagina (principal) ==

== ENCOUNTER → 2017-04-29 | Outpatient (CLI) | payer BC ==
--- NOTE | 2017-04-29 12:28 | MAMMOGRAPHY REPORT ---
BILATERAL DIGITAL DIAGNOSTIC MAMMOGRAM TOMOSYNTHESIS WITH CAD AND TARGETED LEFT ULTRASOUND: 04/29/2017 CLINICAL HISTORY: History of left breast cancer status post lumpectomy as well as reexcision for posi tive margins. The final margins were negative. The patient is also status post radiation therapy. She denies any current complaints. TECHNIQUE: Breast tomosynthesis in addition to standard 2D mammography was performed. Current study was also evaluated with a Computer Aided Detection (CAD) system. Bilateral CC and MLO 2-D and tomosy nthesis images and spot magnification left CC and ML views were obtained. COMPARISON: Comparison is made to exams dated: 10/28/2016 breast MRI, 05/05/2016 ultrasound, 04/08/2016 specimen, 04/08/2016 localization, 03/17/2016 mammogram, and 03/17/2016 MRI biopsy - [facility]. BREAST COMPOSITION: The tissue of both breasts is extremely dense, which lowers the sensitivity of m ammography. FINDINGS: There are new post surgical changes in the left upper outer quadrant from prior lumpectomy , including new density and architectural distortion as well as surgical clips at the lumpectomy bed. A linear scar marker denotes a scar on the left breast. Spot magnification views of the lumpectomy bed demonstrate no suspicious masses or clusters of microcalcifications. There is a nodular 11 mm a symmetry seen within the left inferior breast on the MLO view, which has the appearance of normal fib roglandular tissue on the tomosynthesis images and does appear somewhat similar to the prior 2008 exa m, however, ultrasound was performed of the area for further evaluation. The remainder of both breasts are stable compared to prior exams, without suspicious masses, calcific ations, or areas of architectural distortion noted. Bilateral asymmetries and scattered bilateral be nign-appearing calcifications are not significantly changed. Targeted ultrasound was performed of the left inferior breast in the region of the mammographic asymm etry. No suspicious masses or other suspicious sonographic abnormalities are evident. Therefore, th e mammographic finding is benign and felt to represent normal fibroglandular tissue. IMPRESSION: ACR-BI-RADS CATEGORY 3: PROBABLY BENIGN, TARGETED ULTRASOUND ACR-BI-RADS CATEGORY 3: PRO BABLY BENIGN 1. Expected post treatment changes in the left breast, without mammographic evidence of malignancy. Left inferior breast asymmetry on the MLO view has no sonographic correlate and is benign and compat ible with normal fibroglandular tissue. 2. No mammographic evidence of malignancy in the right breast. Recommend follow-up diagnostic tomosynthesis mammograms of the left breast in 6 months to reevaluate posttreatment changes. Additionally, the patient is due for follow-up bilateral breast MRI at this t [facility] the [facility]; the patient reports she has an appointment next week. The patient has been verbally notified of the results. Approximately 10% of breast cancers are not detected with mammography. A negative mammographic report should not delay biopsy if a clinically suggestive mass is present. Sunshine Oshea M.D. ah/:04/29/2017 12:09:55 Java Web Application Developer: Mary Gordon, [facility] letter sent: Personal History 3 BI-RADS Code: ACR-BI-RADS Category 3: Probably Benign Ultrasound BI-RADS: ACR-BI-RADS Category 3: Pr obably Benign
== END | disposition home or self-care (01) ==
LOC: C.MAMM 11:05
PROVIDERS: ATTEND Physician Assistant Medical
DX: Z08 Encounter for follow-up examination after completed treatment for malignant neoplasm (principal); Z85.3 Personal history of malignant neoplasm of breast; N64.89 Other specified disorders of breast; Z98.890 Other specified postprocedural states

== ENCOUNTER → 2017-05-04 | Outpatient (CLI) | payer BC ==
[~2017-05-04] MED LIST changes: +GADAVIST IV PRN
--- NOTE | 2017-05-05 13:16 | MAMMOGRAPHY REPORT ---
BREAST MRI OF BOTH BREASTS : 05/04/2017 CLINICAL HISTORY: 57 year old woman with a personal history of left breast cancer status post breast conservation treatment presents for continued MRI surveillence and to follow up probably benign enhan cing foci in the breasts. COMPARISON: Comparison is made to exams dated: 04/29/2017 ultrasound, 04/29/2017 mammogram, 10/28/2016 breast MRI, 05/05/2016 ultrasound, 04/08/2016 specimen, and 04/08/2016 [facility]. TECHNIQUE: Using a 1.5 Jennifer magnet and dedicated breast coil, multisequence axial images were obtain ed through the breasts. After uneventful IV administration of 8 mL of Gadavist, dynamic multiphase c ontrast-enhanced axial images, and sagittal postcontrast were obtained. Temporal subtraction axial i mages and 3-D MIP images are provided. Everything was then reviewed on a 3-D workstation, milog. FINDINGS: Right breast: There is mild background parenchymal enhancement of the right breast. The majority of the enhancing foci within the right breast are unchanged in size and appearance comparing to prior [facility] MRIs dated 10/28/2016, 01/28/2016. However, there is new focal non-mass enhancement in the suba reolar versus 9:00 anterior periareolar right breast measuring 6.5 x 7.8 x 6.4 mm. There is small ov oid central T2 hyperintensity, suggesting this could represent an inflamed cyst. However, further ch aracterization with targeted second look ultrasound is recommended. If an abnormality is identified, ultrasound guided core biopsy could be performed at the same appointment (45 minutes). No other new suspicious enhancing mass, non-mass enhancement or suspicious kinetics are identified in the right b reast. No focal skin thickening or nipple retraction. No suspicious right axillary lymphadenopathy. Left breast: There is no significant background parenchymal enhancement of the left breast. There is stable expected architectural distortion and susceptibility artifact in the 12:00 and upper outer fa r posterior left breast, at the site of prior lumpectomy. No new suspicious enhancing mass, non-mass enhancement or suspicious kinetics is seen in the left breast. No focal skin thickening or nipple r etraction. No suspicious left axillary lymphadenopathy. IMPRESSION: ACR BI-RADS CATEGORY 0: INCOMPLETE EVALUATION: NEED ADDITIONAL IMAGING EVALUATION 1. New focal non-mass enhancement in the subareolar versus 9:00 anterior periareolar right breast, f or which targeted second look ultrasound and possible ultrasound guided core biopsy is recommended (4 5 minutes). 2. Stable post treatment changes in the left breast, without MRI evidence of malignancy. 3. No suspicious axillary lymphadenopathy bilaterally. The patient will be called to schedule an appointment. Yen Huertas M.D. ay/:05/05/2017 07:57:03 Manager Process Improvement: fixer supervisor, [facility] letter sent: Addl Imaging 0 BI-RADS Code: ACR BI-RADS Category 0: Incomplete Evaluation: Need Additional Imaging Evaluation
== END | disposition home or self-care (01) ==
LOC: C.MRI 09:04
PROVIDERS: ATTEND Physician Assistant Medical
DX: C50.412 Malignant neoplasm of upper-outer quadrant of left female breast (principal); R92.8 Other abnormal and inconclusive findings on diagnostic imaging of breast; Z98.890 Other specified postprocedural states

== ENCOUNTER → 2017-05-25 | Outpatient (CLI) | payer BC ==
[~2017-05-25] MED LIST changes: -GADAVIST IV PRN
--- NOTE | 2017-05-25 15:15 | MAMMOGRAPHY REPORT ---
ULTRASOUND OF RIGHT BREAST: 05/25/2017 CLINICAL HISTORY: 57-year-old woman with a personal history of left breast cancer status post breast conserving therapy called back for second look ultrasound for new focal non-mass enhancement measurin g 7 x 8 mm in the 9:00 anterior right breast on recent breast MRI. COMPARISON: Comparison is made to exams dated: 05/04/2017 breast MRI, 04/29/2017 ultrasound, 04/29/2017 mammogram, 10/28/2016 breast MRI, 05/05/2016 ultrasound, and 04/08/2016 specimen - [facility]. FINDINGS: Targeted ultrasound was performed in the anterior periareolar and retroareolar right breas t to assess for the non-mass enhancement seen on recent MRI. There are scattered areas of cysts, marshall rocystic clusters and probable stromal fibrosis. However, no discrete solid or cystic mass is identi fied. No suspicious abnormality is seen to correlate with the MRI non-mass enhancement. IMPRESSION: ACR-BI-RADS CATEGORY 3: PROBABLY BENIGN - FOLLOW-UP RECOMMENDED There is no suspicious abnormality or definite targeted sonographic evidence of malignancy. To corre late with the focal non-mass enhancement seen on recent breast MRI. Although this could represent be nign fibrocystic change or adenosis, given the personal history of left breast cancer, a short interv al follow-up breast MRI is recommended to ensure stability in 6 months These results and recommendations were discussed with the patient at the time of the ultrasound on . Yen Huertas M.D. ay/:05/25/2017 10:02:44 Laborer Stores: Quin SLOAN)(Pierre), [facility] letter sent: Follow Up Recommended 3 BI-RADS Code: ACR-BI-RADS Category 3: Probably Benign
== END | disposition home or self-care (01) ==
LOC: C.MAMM 09:23
PROVIDERS: ATTEND Physician Assistant Medical
DX: R92.8 Other abnormal and inconclusive findings on diagnostic imaging of breast (principal); Z85.3 Personal history of malignant neoplasm of breast

== ENCOUNTER → 2017-12-03 | Outpatient (CLI) | payer OTHER ==
[~2017-12-03] MED LIST changes: +GADAVIST IV PRN; -TAMO20TA47 PO; +TAMO20TA9 PO
--- NOTE | 2017-12-06 14:33 | MAMMOGRAPHY REPORT ---
BREAST MRI OF BOTH BREASTS : 12/03/2017 CLINICAL HISTORY: Short interval follow-up focal non-mass enhancement in the right breast seen on fausto or breast MRI. History of left breast cancer status post lumpectomy 2015. COMPARISON: Comparison is made to exams dated: 05/25/2017 ultrasound, 05/04/2017 breast MRI, 7 ultrasound, 04/29/2017 mammogram, 10/28/2016 breast MRI, and 05/05/2016 ultrasound - [facility]. Prior breast MRI dated 07/05/2015. Technique: The patient was placed prone in a dedicated breast imaging coil. Precontrast axial T1-payton ghted, axial T2-weighted fat saturation, and axial T1-weighted fat saturation images were obtained. After the administration of 7.5 mL of Gadavist IV contrast, sequential T1-weighted fat saturation serena ges were obtained. Subtraction images were obtained of the dynamic contrast enhanced sequences, and 3-D reformations were performed. The [employer] software was used for kinetic analysis. Findings: Right breast: There is mild background parenchymal enhancement. The previously described non-mass enhancement seen within the right subareolar/9:00 anterior breast is no longer evident; the finding is therefore bebeto gn and likely represented an inflamed cyst/fibrocystic changes. The remainder of the right breast is stable compared to the prior MRI exams. All previously described foci of enhancement in the right b reast are stable dating back to the July 2015 exam, including a 4 mm focus of enhancement in the right 8:00 middle depth, 2 adjacent foci of enhancement in the right 7:00 breast middle depth, and an enhancing 3 mm focus in the right lower inner quadrant (series [id number] images 71, 81, and 93). Given the long-term stability of the foci, they are considered benign. No new or suspicious enhancing mass or non-mass enhancement is evident. Left breast: There is minimal background parenchymal enhancement. There are stable post surgical jasiel nges in the left upper outer quadrant from prior lumpectomy. No new or suspicious enhancing masses o r areas of abnormal non-mass enhancement are noted. There is no evidence of axillary adenopathy. The chest wall structures are negative. Visualized por tions of the extramammary soft tissues are grossly unremarkable. IMPRESSION: ACR BI-RADS CATEGORY 2: BENIGN No MRI evidence of malignancy in either breast. The previously seen enhancement in the right subareo lar/9:00 breast has resolved and is therefore benign. Recommend continuation with annual screening b reast MRI, due in 1 year. The patient is also due for follow-up diagnostic mammograms of the left br east at this time. Sunshine Oshea M.D. 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
== END | disposition home or self-care (01) ==
LOC: C.MRI 07:12
PROVIDERS: ATTEND Nurse Practitioner Family
DX: C50.412 Malignant neoplasm of upper-outer quadrant of left female breast (principal)